=== PATIENT | female | born 1980 | race Caucasian/White ===

== ENCOUNTER → 2017-09-08 | Outpatient (CLI) | payer BC ==
[2017-09-08 13:24] LABS: ALBUMIN 4.3 g/dL (3.5-5.0); BUN/CREATININE RATIO 16.1 (6.0-26.0); CALCIUM 9.7 mg/dL (8.4-10.2); POTASSIUM 4.3 mmol/L (3.6-5.0); TOTAL BILIRUBIN 1.6 mg/dL (0.2-1.3); TOTAL PROTEIN 8.3 g/dL (6.3-8.2)
== END ==
LOC: LAB 10:30
PROVIDERS: Family Medicine
DX: E66.3 Overweight (principal); J30.9 Allergic rhinitis, unspecified

== ENCOUNTER → 2018-06-03 | Outpatient (CLI) | payer BC | LOC: CARDREHAB 08:39 → CARDLAB 08:48 | DX: I49.3 Ventricular premature depolarization (principal); R00.0 Tachycardia, unspecified ==

== ENCOUNTER → 2018-12-27 | Outpatient (CLI) | payer OTHER ==
[2018-12-27 11:29] LABS: EOS # 0.1 (0.04-0.40); EOS % 2.1 % (1.0-5.0); HEMATOCRIT 40.1 % (37.0-47.0); HEMOGLOBIN 13.2 g/dL (12.5-16.0); LYMPH# 1.5 (1.50-4.00); MEAN CELL VOLUME 95 fl (78-100); MEAN CORPUSCULAR HEMOGLOBIN 31 pg (27-31); MEAN CORPUSCULAR HGB CONC 33 g/dL (33-37); MEAN PLATELET VOLUME 10.1 fl (7.4-10.4); MONO # 0.6 (0.20-0.80); NEU # 3.6 (1.40-6.50); PLATELET COUNT 216 K/mm3 (130-400); RED BLOOD COUNT 4.24 M/mm3 (4.10-5.30); RED CELL DISTRIBUTION WIDTH 12.4 % (11.5-14.5); WHITE BLOOD COUNT 5.8 K/mm3 (4.8-10.8)
[2018-12-27 11:43] LABS: ALBUMIN 4.2 g/dL (3.5-5.0); CALCIUM 8.9 mg/dL (8.4-10.2); POTASSIUM 3.7 mmol/L (3.6-5.0); TOTAL BILIRUBIN 1.7 mg/dL (0.2-1.3); TOTAL PROTEIN 7.6 g/dL (6.3-8.2)
== END ==
LOC: LAB 11:17
PROVIDERS: Family Medicine
DX: Z00.00 Encounter for general adult medical examination without abnormal findings (principal)

== ENCOUNTER → 2021-04-08 | Outpatient (CLI) | payer OTHER ==
[2021-04-08 14:55] LABS: BASO # 0.04 (0.02-0.10); EOS # 0.14 (0.04-0.40); HEMATOCRIT 41.5 % (37.0-47.0); HEMOGLOBIN 13.8 g/dL (12.5-16.0); LYMPH# 2.19 (1.50-4.00); MEAN CELL VOLUME 92 fl (78-100); MEAN CORPUSCULAR HEMOGLOBIN 31 pg (27-31); MEAN CORPUSCULAR HGB CONC 33 g/dL (33-37); MEAN PLATELET VOLUME 9.1 fl (7.4-10.4); MONO # 0.63 (0.20-0.80); NEU # 4.03 (1.40-6.50); PLATELET COUNT 261 K/mm3 (130-400); RED CELL DISTRIBUTION WIDTH 11.9 % (11.5-14.5)
[2021-04-08 15:06] LABS: ALBUMIN 4.4 g/dL (3.5-5.0); SODIUM 140 mmol/L (136-145)
[2021-04-08 15:08] LABS: CALCIUM 9.5 mg/dL (8.3-10.5)
[2021-04-08 15:09] LABS: GLUCOSE 84 mg/dL (65-105); TOTAL PROTEIN 8.3 g/dL (6.4-8.3)
[2021-04-08 15:10] LABS: CARBON DIOXIDE 25 mmol/L (22-29)
[2021-04-08 15:11] LABS: TOTAL BILIRUBIN 1.5 mg/dL (0.2-1.2)
[2021-04-08 15:14] LABS: AST-SGOT 27 U/L (5-34)
[2021-04-08 15:16] LABS: ALT/SGPT 43 U/L (0-55)
[2021-04-08 22:27] LABS: FOLLICLE STIMULATING HORMONE 47.5 mIU/mL (()); LUTENIZING HORMONE 22.2 mIU/mL (()); PROGESTERONE 0.1 ng/mL (())
[2021-04-18 18:39] LABS: ESTRONE (E1) LEVEL 26
== END ==
LOC: LAB 14:46
PROVIDERS: Family Medicine
DX: Z00.00 Encounter for general adult medical examination without abnormal findings (principal); E78.5 Hyperlipidemia, unspecified; N91.2 Amenorrhea, unspecified

== ENCOUNTER → 2021-04-18 | Outpatient (CLI) | payer OTHER | LOC: RAD 14:18 | DX: D17.9 Benign lipomatous neoplasm, unspecified (principal); M62.830 Muscle spasm of back ==